=== PATIENT | female | born 1965 | race Caucasian/White ===

== ENCOUNTER 2018-02-01 13:37 | Emergency (ER) | payer OTHER ==
[~2018-02-01] VITALS: Ht 175.3 cm; Wt 69.9 kg
[2018-02-01 15:00] LABS: BASOPHIL (%) 0.4 % (0-1); EOSINOPHIL (%) 1.5 % (0-5); EOSINOPHIL COUNT 0.1 K/uL (0-0.3); HEMATOCRIT 35.3 % (36.0-46.0); HEMOGLOBIN 12.1 G/DL (11.9-15.5); IMMATURE GRANULOCYTE (%) 0.6 % (0.0-0.7); LYMPHOCYTE (%) 29.4 % (15-42); MCH 31.4 PG (29.0-34.0); MCHC 34.3 G/DL (30.0-36.0); MCV 91.7 FL (83-99); MONOCYTE (%) 7.4 % (3-12); MONOCYTE COUNT 0.5 K/uL (0-0.8); NEUTROPHIL (%) 60.7 % (45-76); NEUTROPHIL COUNT 4.2 K/uL (1.8-6.4); PLATELET COUNT 185 K/uL (156-360); RBC DIS.WIDTH-CV 13.1 % (11.8-14.6); RBC DIS.WIDTH-SD 43.6 % (39-53); RED BLOOD COUNT 3.85 M/uL (3.80-5.20); WHITE BLOOD COUNT 6.9 K/uL (4.1-10.2)
[2018-02-01 15:08] LABS: ALBUMIN 3.8 g/dL (3.2-4.8); CHLORIDE 108 mEq/L (99-109); POTASSIUM 3.2 mEq/L (3.7-5.4); PTT 28.6 SEC (25-37); SODIUM 140 mEq/L (136-147)
[2018-02-01 15:11] LABS: GLUCOSE 110 mg/dL (70-99); TOTAL PROTEIN 6.4 g/dL (6.4-8.3)
[2018-02-01 15:12] LABS: TOTAL BILIRUBIN 0.3 mg/dL (0.0-1.0)
[2018-02-01 15:14] LABS: ALKALINE PHOSPHATASE 90 IU/L (3-129); CREATININE 0.7 mg/dL (0.6-1.3); GFR ESTIMATE (CALCULATED) > 59 mL/min/
[2018-02-01 15:15] LABS: UREA NITROGEN (BUN) 16 mg/dL (9-23)
[2018-02-01 15:16] LABS: AST (GOT) 20 IU/L (2-34); DIRECT BILIRUBIN 0.1 mg/dL (0.0-0.3)
[2018-02-01 15:17] LABS: ALT (GPT) 20 IU/L (3-49)
[2018-02-01 16:13] VITALS: BP 107/74
== END 2018-02-01 16:15 | disposition home or self-care (01) ==
LOC: EME 13:37
PROVIDERS: Physician Assistant Medical
DX: L84 Corns and callosities (principal); R21 Rash and other nonspecific skin eruption; I10 Essential (primary) hypertension; Z87.891 Personal history of nicotine dependence
CPT/HCPCS: 80048; 80076; 85025; 85610; 85730; 99281; 99284